=== PATIENT | female | born 1975 | race Caucasian/White ===

== ENCOUNTER 2018-12-11 09:26 | Day surgery (SDC) | payer OTHER ==
[~2018-12-11 09:26] MED LIST: Buffered Lidocaine 1% SYRIN* 1 ML/SYRINGE INTRADERM ONE; Lactated Ringers 1000 ML Bag* 1,000 ML IV SCH
[2018-12-11 10:31] LABS: Hematocrit 40 % (35-47); Mean Corpuscular HGB Conc 35 g/dL (31-36); Mean Corpuscular Hemoglobin 32 pg (27-31); Mean Corpuscular Volume 91 fL (80-97); Platelet Count 220 10^3/uL (150-450); Red Blood Count 4.43 10^6 /uL (3.70-4.87); Red Cell Distribution Width 14 % (10-15); White Blood Count 6.8 10^3/uL (3.5-10.8)
[2018-12-11] MEDS ORDERED: Midazolam* 1 MG/ML 2 ML VIAL (2 MG) ONE (12:12)
[2018-12-11] MEDS ORDERED: fentaNYL* 50 MCG/ML 2 ML VIAL (100 MCG VIAL) ONE (12:12)
[2018-12-11] MEDS ORDERED: Scopolamine 1.5 mg* PATCH ONE (12:19)
[2018-12-11] MEDS ORDERED: Ondansetron INJ* 2 MG/ML VIAL ONE (12:24)
[2018-12-11] MEDS ORDERED: Dexamethasone IV* 4 MG/ML 1 ML (4 MG) ONE (12:24)
[2018-12-11] MEDS ORDERED: Propofol* 10 MG/ML 20 ML BTL ONE (12:24)
[2018-12-11] MEDS ORDERED: Lidocaine 2% PF * 5 ML VIAL ONE (12:24)
[2018-12-11] MEDS ORDERED: Metoclopramide IV* 5 MG/ML 2 ML VIAL IV PRN (12:45)
[2018-12-11] MEDS ORDERED: Naloxone* 0.4 MG/ML 1 ML VIAL IV PRN (12:45)
[2018-12-11] MEDS ORDERED: PROCHLORPERAZINE INJ 5 MG/ML 2 ML VIAL IV PRN (12:45)
[2018-12-11] MEDS ORDERED: HYDROmorphone INJ1* 1 MG/ML SYRINGE ONE (13:12)
[2018-12-11] MEDS ORDERED: HYDROmorphone INJ* 0.5 MG/0.5 ML SYRINGE IV PRN (13:18)
[2018-12-11] MEDS ORDERED: Ibuprofen TAB* 600 MG PO PRN (13:23)
[2018-12-11] MEDS ORDERED: oxyCODONE/Acetamin 5/325 MG* TAB PO PRN (13:28)
[2018-12-11] MEDS ORDERED: PROCHLORPERAZINE INJ 5 MG/ML 2 ML VIAL ONE (13:43)
[2018-12-11] MEDS ORDERED: Lactated Ringers 1000 ML Bag* 1,000 ML IV SCH (14:00)
[2018-12-11] MEDS ORDERED: Lisinopril TAB* 10 MG PO ONE (14:00)
[2018-12-11] MEDS ORDERED: Metoclopramide IV* 5 MG/ML 2 ML VIAL ONE (14:28)
--- NOTE | 2018-12-11 14:52 | OP ---
AMENDED REPORT NOW INCLUDES DATE OF OPERATION - ESIGNED BEFORE ADJUSTMENT * CC: [facility] * DATE OF OPERATION: 12/11/18 - [facility] DATE OF : 73 SURGEON: Svitlana Rasmussen MD. ANESTHESIOLOGIST: Dr. Moody. ANESTHESIA: General endotracheal anesthesia. PRE-OP DIAGNOSES: 1. Endometrial polyp on office biopsy 2. Irregular vaginal bleeding. 3. Pelvic pain. POST-OP DIAGNOSES: 1. Endometrial polyp on office biopsy 2. Irregular vaginal bleeding. 3. Pelvic pain. OPERATIVE PROCEDURES: Exam under anesthesia, dilation, hysteroscopy, MyoSure polypectomy, and curettage. COMPLICATIONS: None. ESTIMATED BLOOD LOSS: Minimal, less than 20 cc. FLUIDS: Per Anesthesia. DRAINS: None. FINDINGS: Midline normal-appearing cervix with a small polyp protruding from the cervical os approximately 3 mm. The uterus sounded to 7. There was possibly a small polyp on the anterior uterine wall. The area was removed with the MyoSure under direct visualization. There was a second-degree cystocele and a second- to third-degree rectocele. The fluid deficit was approximately 280. The uterus felt small and midline. No adnexal masses were palpated. DESCRIPTION OF PROCEDURE: The patient was brought to the operating room. When general anesthesia was found to be adequate, the patient was prepped and draped in the usual sterile fashion in the dorsal lithotomy position. Time-out was performed. Exam under anesthesia was performed with the above findings noted. The cervix was gently and easily dilated with graduated Huntley dilators. The uterus sounded to 7. The MyoSure was introduced. A small possible polyp was seen on the anterior uterine wall. This was removed under direct visualization with the MyoSure. Curettage was then performed and endometrial curettings, and everything obtained from the MyoSure was sent as one specimen called endometrial curettings. Endocervical curettage was performed prior to the MyoSure and that small area that appeared to possibly be a polyp was included with that and sent to Pathology as endocervical curettings. The single toothed tenaculum was removed from the cervix. Excellent hemostasis was noted. All instruments were removed from vagina and the patient was brought to the recovery room awake and in stable condition. COMPLICATIONS: None. COUNTS: Sponge count correct x2. CONDITION: The patient was brought to recovery room awake and in stable condition. [id number]/[facility] #: [id number] RENET[place]
[2018-12-11 15:52] VITALS: BP 153/99
[2018-12-14] MEDS ORDERED: Scopolamine PATCH Remove* 1 NOTE MISC PATCH OFF ONE (12:46)
== END 2018-12-11 16:10 | disposition home or self-care (01) ==
LOC: OR 09:26
PROVIDERS: ATTEND Obstetrics & Gynecology
DX: N92.1 Excessive and frequent menstruation with irregular cycle (principal); N84.0 Polyp of corpus uteri; R10.2 Pelvic and perineal pain; N94.9 Unspecified condition associated with female genital organs and menstrual cycle; I10 Essential (primary) hypertension; E66.9 Obesity, unspecified; E03.9 Hypothyroidism, unspecified
CPT/HCPCS: 36415; 81025; 85027; 86850; 86900; 86901; 88305; A9270-GY; J0780; J1100; J1170; J2250; J2405; J2704; J2765; J3010